=== PATIENT | female | born 1940 | race Caucasian/White ===

== ENCOUNTER 2017-09-21 08:36 | Emergency (ER) | payer OTHER ==
[~2017-09-21] VITALS: Ht 157.5 cm; Wt 81.6 kg
[~2017-09-21 08:36] MED LIST: ASPIR 8181 M1 PO; ASPIR-LOW81 MG PO; CALCIUM 500 +1 EACH PO; CALCIUM 600 +1 EAC4 PO; CLARITIN,ALAVAR10 MG PO; CLARITIN10 MG PO; COLACE100 MG PO; ELIQUIS5 MG PO; EXTRA STRENGTH500 M1 PO; FLECAINIDE ACE100 MG PO; IBUPROFEN200 M1 PO; INDERAL20 MG PO; LO-DOSE ASPIRIN81 M1 PO; MUSCLE RUB CREA85 GM TP; PRESERVISION T1 EACH PO; PRILOSEC40 MG PO; PROPRANOLO20 MG/5 ML PO; PROPRANOLOL HCL10 MG PO; SIMVASTATIN20 M1 PO; SOTALOL80 MG PO; SYSTANE 0.3-0.1 EACH BOTH EYES; SYSTANE LIQUID15 ML BOTH EYES; THERAGRAN1 TABLET PO; TUMS500 MG PO; XARELTO20 MG PO
[2017-09-21 09:22] LABS: BASOPHIL (%) 0.7 % (0-1); BASOPHIL COUNT 0.1 K/uL (0-0.1); EOSINOPHIL (%) 1.5 % (0-5); EOSINOPHIL COUNT 0.1 K/uL (0-0.3); HEMATOCRIT 38.5 % (36.0-46.0); IMMATURE GRANULOCYTE (%) 0.3 % (0.0-0.7); LYMPHOCYTE (%) 28.5 % (15-42); LYMPHOCYTE COUNT 2.1 K/uL (1.0-2.8); MCH 31.6 PG (29.0-34.0); MCHC 33.8 G/DL (30.0-36.0); MCV 93.7 FL (83-99); MONOCYTE (%) 5.6 % (3-12); MONOCYTE COUNT 0.4 K/uL (0-0.8); NEUTROPHIL (%) 63.4 % (45-76); NEUTROPHIL COUNT 4.6 K/uL (1.8-6.4); PLATELET COUNT 252 K/uL (156-360); RBC DIS.WIDTH-SD 41.5 % (39-53); RED BLOOD COUNT 4.11 M/uL (3.80-5.20); WHITE BLOOD COUNT 7.3 K/uL (4.1-10.2)
[2017-09-21 09:33] LABS: INTER. NORMALIZED RATIO 1.1
[2017-09-21 09:41] LABS: CHLORIDE 106 mEq/L (99-109); SODIUM 141 mEq/L (136-147)
[2017-09-21 09:43] LABS: GLUCOSE 111 mg/dL (70-99)
[2017-09-21 09:46] LABS: CREATININE 0.7 mg/dL (0.6-1.3); GFR ESTIMATE (CALCULATED) > 59 mL/min/
[2017-09-21 09:47] LABS: UREA NITROGEN (BUN) 18 mg/dL (9-23)
[2017-09-21] MEDS ORDERED: ANTIVERT25 MG PO (11:29)
[2017-09-21 12:07] VITALS: BP 149/74
== END 2017-09-21 12:09 | disposition home or self-care (01) ==
LOC: EME 08:36
PROVIDERS: Emergency Medicine
DX: R42 Dizziness and giddiness (principal); R00.1 Bradycardia, unspecified; I45.4 Nonspecific intraventricular block; R94.31 Abnormal electrocardiogram [ECG] [EKG]; E78.5 Hyperlipidemia, unspecified; Z79.01 Long term (current) use of anticoagulants; Z87.19 Personal history of other diseases of the digestive system; Z90.710 Acquired absence of both cervix and uterus; Z88.1 Allergy status to other antibiotic agents; Z88.8 Allergy status to other drugs, medicaments and biological substances
CPT/HCPCS: 70450; 80048; 85025; 85610; 93005; 99281; 99285; J2405; J7030